=== PATIENT | female | born 1990 | race Asian ===

== ENCOUNTER 2017-04-14 18:27 | Inpatient (IN) | payer OTHER ==
[2017-04-14] VITALS (10 sets, daily range): BP systolic 87–137; BP diastolic 48–82; PULSE 62–111; TEMP 97.7
[~2017-04-14] VITALS: Ht 152.4 cm; Wt 55.9 kg
[2017-04-14] MEDS ORDERED: PRENATAL PO (20:08)
[2017-04-14 22:43] LABS: BASO # 0.1 (0.0-0.2); BASO % 0.3 % (0.0-2.0); EOS % 0.1 % (0-4.0); GRAN # 19.2 (1.4-6.5); GRAN % 84.5 % (42.2-75.2); HEMATOCRIT 41.9 % (37.0-47.0); HEMOGLOBIN 14.2 g/dl (12.5-16.0); LYMPH # 2.1 (1.2-3.4); LYMPH % 9.3 % (20.0-51.0); MEAN CELL VOLUME 89 fl (80.0-100.0); MEAN CORPUSCULAR HEMOGLOBIN 30 pg (27.0-31.0); MEAN CORPUSCULAR HGB CONC 34 g/dl (33.0-37.0); MEAN PLATELET VOLUME 11.3 fl (7.4-10.4); MONO # 1.2 (0.1-0.6); MONO % 5.2 % (1.7-9.3); PLATELET COUNT 341 K/mm3 (130-400); RED BLOOD COUNT 4.72 M/mm3 (4.10-5.30); REDCELL DISTRIBUTION WIDTH-CV 14.2 % (11.5-14.5)
[2017-04-14 22:47] LABS: WHITE BLOOD COUNT 22.7 K/mm3 (4.8-10.8)
[2017-04-15] VITALS (19 sets, daily range): BP systolic 96–132; BP diastolic 52–88; PULSE 68–126; TEMP 98.1–98.9
[2017-04-16] MEDS ORDERED: IBU600 MG PO (05:29)
[2017-04-16] MEDS ORDERED: PERCOCET 325 MG1 TA2 PO (05:29)
[2017-04-16 07:40] VITALS: BP 96/63; PULSE 71; TEMP 98.7
[2017-04-16 16:09] VITALS: BP 102/64; PULSE 70; TEMP 98.1
[2017-04-16 19:45] VITALS: BP 105/62; PULSE 74; TEMP 97.7
[2017-04-17 09:45] VITALS: BP 95/56; PULSE 77; TEMP 97.9
== END 2017-04-17 14:35 | disposition home or self-care (01) | DRG 775 ==
LOC: LDRO 18:27 → LDR 21:08 → OB 04-15 05:00 → LDRO 05-09 05:55
PROVIDERS: Obstetrics & Gynecology
PROC: 10E0XZZ Delivery of Products of Conception, External Approach (ICD-10-PCS; principal; 2017-04-15)
PROC: 0W8NXZZ Division of Female Perineum, External Approach (ICD-10-PCS; 2017-04-15)
DX: O60.14X0 Preterm labor third trimester with preterm delivery third trimester, not applicable or unspecified (principal); O69.2XX0 Labor and delivery complicated by other cord entanglement, with compression, not applicable or unspecified; Z3A.36 36 weeks gestation of pregnancy; Z37.0 Single live birth
CPT/HCPCS: J2540; J2590; J7120

== ENCOUNTER → 2017-04-19 | Outpatient (CLI) | payer OTHER ==
[~2017-04-19] MED LIST: IBU600 MG PO; PERCOCET 325 MG1 TA2 PO; PRENATAL PO
== END ==
LOC: OLC 15:04
DX: Z01.89 Encounter for other specified special examinations (principal)

== ENCOUNTER → 2017-04-20 | Outpatient (CLI) | payer OTHER | LOC: OLC 14:48 | DX: Z39.1 Encounter for care and examination of lactating mother (principal); Z71.89 Other specified counseling ==

== ENCOUNTER → 2017-04-30 | Outpatient (CLI) | payer OTHER | LOC: LAC 14:32 | DX: Z39.1 Encounter for care and examination of lactating mother (principal); N64.4 Mastodynia; Z71.89 Other specified counseling ==

== ENCOUNTER → 2018-09-22 | Outpatient (CLI) | payer OTHER | LOC: COL.RAD 17:44 | DX: M54.5 Low back pain (principal); M54.6 Pain in thoracic spine ==

== ENCOUNTER → 2018-10-17 | Outpatient (CLI) | payer OTHER | LOC: COL.RAD 17:41 | DX: M54.5 Low back pain (principal); M54.6 Pain in thoracic spine ==

== ENCOUNTER 2019-02-21 08:31 | Outpatient (RCR) | payer OTHER | END 2019-05-22 | disposition home or self-care (01) | LOC: WSOH | DX: M54.41 Lumbago with sciatica, right side (principal); M46.1 Sacroiliitis, not elsewhere classified; E06.3 Autoimmune thyroiditis; Z79.899 Other long term (current) drug therapy; X58.XXXA Exposure to other specified factors, initial encounter; Y92.59 Other trade areas as the place of occurrence of the external cause; Y99.0 Civilian activity done for income or pay ==

== ENCOUNTER → 2020-04-03 | Outpatient (CLI) | payer BC | LOC: DIA.ED 14:55 | DX: O24.419 Gestational diabetes mellitus in pregnancy, unspecified control (principal); E03.9 Hypothyroidism, unspecified | CPT/HCPCS: G0108 ==

== ENCOUNTER → 2020-04-17 | Outpatient (CLI) | payer BC | LOC: DIA.ED 08:55 | DX: O24.419 Gestational diabetes mellitus in pregnancy, unspecified control (principal); E03.9 Hypothyroidism, unspecified; Z79.4 Long term (current) use of insulin | CPT/HCPCS: G0108 ==

== ENCOUNTER → 2020-04-22 | Outpatient (CLI) | payer BC | LOC: DIA.ED 08:01 | DX: O24.419 Gestational diabetes mellitus in pregnancy, unspecified control (principal); Z79.4 Long term (current) use of insulin; E03.9 Hypothyroidism, unspecified | CPT/HCPCS: G0108 ==

== ENCOUNTER → 2020-05-02 | Outpatient (CLI) | payer BC | LOC: DIA.ED 08:20 | DX: O24.419 Gestational diabetes mellitus in pregnancy, unspecified control (principal); E03.9 Hypothyroidism, unspecified; Z79.4 Long term (current) use of insulin | CPT/HCPCS: G0108 ==

== ENCOUNTER → 2020-05-09 | Outpatient (CLI) | payer BC | LOC: DIA.ED 05-08 16:13 | DX: O24.419 Gestational diabetes mellitus in pregnancy, unspecified control (principal); Z79.4 Long term (current) use of insulin; E03.9 Hypothyroidism, unspecified | CPT/HCPCS: G0108 ==

== ENCOUNTER 2020-05-25 05:41 | Outpatient (CLI) | payer BC ==
[~2020-05-25] VITALS: Ht 149.9 cm; Wt 63.2 kg
--- NOTE | 2020-05-25 05:55 | NUR ---
Ambulatory to unit for labor assessment, accompanied by spouse. Plan of care reviewed. Pt reports contractions off and on all night, was able to sleep, stating "i woke up to go to the bathroom and was having them. At 0400 the pain woke me up"
[2020-05-25 06:01] VITALS: BP 108/71; PULSE 99
--- NOTE | 2020-05-25 06:20 | NUR ---
REPORT RECIEVED FROM JUAN MIGUEL LEE, PATIENT HERE AT 0555 COMPLAINS OF CONTRACTIONS. PATIENT HERE WITH . RESTING IN BED
[2020-05-25 06:30] VITALS: BP 108/71; PULSE 99
[2020-05-25 06:56] VITALS: BP 109/68; PULSE 81; TEMP 98
[2020-05-25 07:00] VITALS: BP 108/77; PULSE 96; TEMP 98
[2020-05-25] MEDS ORDERED: PRENATAL (07:19)
[2020-05-25] MEDS ORDERED: NOVOLOG 100U100 U/M1 SQ (07:19)
[2020-05-25] MEDS ORDERED: LEVOXYL0.075 MG PO (07:20)
[2020-05-25 07:30] VITALS: BP 109/68; PULSE 81
[2020-05-25 07:47] VITALS: BP 108/72; PULSE 72
[2020-05-25] MEDS ORDERED: NATURAL IRON65 MG PO (12:58)
== END 2020-05-25 08:00 | disposition home or self-care (01) ==
LOC: LDRO 05:41 → LDR 05:50 → LDRO 08:00
DX: O62.9 Abnormality of forces of labor, unspecified (principal); Z3A.37 37 weeks gestation of pregnancy
CPT/HCPCS: OP

== ENCOUNTER 2020-05-25 12:13 | Inpatient (IN) | payer BC ==
[~2020-05-25] VITALS: Ht 149.9 cm; Wt 63.2 kg
[2020-05-25] VITALS (22 sets, daily range): BP systolic 102–145; BP diastolic 56–79; PULSE 69–118; TEMP 97.8–99
[~2020-05-25 12:13] MED LIST changes: +LEVOXYL0.075 MG PO; +NOVOLOG 100U100 U/M1 SQ; +PRENATAL
--- NOTE | 2020-05-25 12:25 | NUR ---
Patient onto unit via wheelchair for labor check with at side. Patient reports contractions have increased in pain and frequency since being discharged from hospital this morning. Patient also reports bleeding noted after bowel movement this morning. Patient reports good movement and denies leaking of fluid. EFMs on. VS taken. SVE /-2 per Garrett BULLARD. Assessment completed. notified, admission orders received. IV started in right hand, labs drawn, LR bolusing for epidural placement. Consents signed.
[2020-05-25] MEDS ORDERED: NATURAL IRON65 MG PO (12:58)
--- NOTE | 2020-05-25 13:00 | NUR ---
1300: Patient sitting up for epidural placement. Emily Castro [employer] HELPER at bedside. 1306: Lidocaine. 1307: Single Shot given by Nilam GARCIA, no adverse reactions noted. 1308: Epidural catheter placed. 1309: Test Dose given by Nilam GARCIA, no adverse reactions noted. 1305: Patient repositioned to left tilt.
[2020-05-25 13:28] LABS: BASO % 0.3 % (0.0-2.0); EOS % 0.1 % (0-4.0); GRAN # 12.2 (1.4-6.5); GRAN % 79.6 % (42.2-75.2); HEMATOCRIT 41.5 % (37.0-47.0); HEMOGLOBIN 13.6 g/dl (12.5-16.0); LYMPH # 2.1 (1.2-3.4); LYMPH % 13.7 % (20.0-51.0); MEAN CELL VOLUME 83 fl (80.0-100.0); MEAN CORPUSCULAR HEMOGLOBIN 27 pg (27.0-31.0); MEAN CORPUSCULAR HGB CONC 33 g/dl (33.0-37.0); MEAN PLATELET VOLUME 12.5 fl (7.4-10.4); MONO # 0.9 (0.1-0.6); MONO % 5.9 % (1.7-9.3); PLATELET COUNT 343 K/mm3 (130-400); RED BLOOD COUNT 4.98 M/mm3 (4.10-5.30); REDCELL DISTRIBUTION WIDTH-CV 21.1 % (11.5-14.5)
--- NOTE | 2020-05-25 13:50 | NUR ---
to bedside. Plan of care discussed, questions answered. AROM at 1350, moderate amount of clear fluid noted. SVE 6-7/80/-2 per provider. Johnson catheter placed by this RN. Patient repositioned to right tilt with peanut ball in place. Call light within reach.
--- NOTE | 2020-05-25 15:00 | NUR ---
Patient resting comfortably upon RN entry to room. SVE 8/100/0. Patient repositioned to left tilt with peanut ball in place.
--- NOTE | 2020-05-25 15:15 | NUR ---
Variable deceleration into the 60s noted. SVE AL/+1. notified, requested on unit for delivery. Patient repositioned to right tilt.
--- NOTE | 2020-05-25 15:45 | NUR ---
1525: on unit, at bedside. RYNE Steiner. Elizabeth pugh Patient and room prepped for delivery. 1531: Initial push. 1535: Spontaneous vaginal delivery of viable male assisted by over 2nd degree perineal laceration. to abdomen, care assumed by Jayce BULLARD. 1537: Spontaneous delivery of placenta assisted by . Fundus firm, scant lochia noted with massage. Pitocin infusing at 333ml/hr. 2nd degree perineal laceration repaired using 3-[address]-1. 1545: Recovery period started. Fundus firm, scant lochia.
[2020-05-26 03:30] VITALS: BP 103/52; PULSE 70; TEMP 97.5
[2020-05-26 07:05] VITALS: BP 106/67; PULSE 71; TEMP 97.9
[2020-05-26 11:15] VITALS: BP 102/66; PULSE 81; TEMP 98
[2020-05-26 15:30] VITALS: BP 100/45; PULSE 79; TEMP 99
--- NOTE | 2020-05-26 18:30 | NUR ---
Report recieved. Requested tylenol at this time. Updated whiteboard and reviewed POC. Denied questions or concerns.
[2020-05-26 20:00] VITALS: BP 104/69; PULSE 82; TEMP 97.7
[2020-05-27 08:30] VITALS: BP 109/68; PULSE 79; TEMP 98
--- NOTE | 2020-05-27 10:04 | NUR ---
Initial visit; Patient thanked Obstetric Anaesthetist for offering congratulations and blessings for the of her son. Obstetric Anaesthetist thanked patient for choosing [facility].
[2020-05-27] MEDS ORDERED: MOTRIN 800800 MG/TAB PO (12:00)
[2020-05-27] MEDS ORDERED: PERCOCET 325 MG1 TA2 PO (12:00)
--- NOTE | 2020-05-27 15:12 | NUR ---
1415 DISCHARGE INSTRUCTIONS REVIEWED WITH PATIENT. ALL QUESTIONS ANSWERED. PATIENT VERBALIZED UNDERSTANDING. PATIENT WILL NOTIFY THIS RN WHEN READY TO LEAVE.
== END 2020-05-27 15:45 | disposition home or self-care (01) | DRG 807 ==
LOC: LDRO 12:13 → LDR 12:44 → OB 12:44
PROVIDERS: Obstetrics & Gynecology; ADMIT Obstetrics & Gynecology
PROC: 10E0XZZ Delivery of Products of Conception, External Approach (ICD-10-PCS; principal; 2020-05-25)
PROC: 0KQM0ZZ Repair Perineum Muscle, Open Approach (ICD-10-PCS; 2020-05-25)
PROC: 10907ZC Drainage of Amniotic Fluid, Therapeutic from Products of Conception, Via Natural or Artificial Opening (ICD-10-PCS; 2020-05-25)
DX: O99.284 Endocrine, nutritional and metabolic diseases complicating childbirth (principal); Z37.0 Single live birth; O70.1 Second degree perineal laceration during delivery; O24.429 Gestational diabetes mellitus in childbirth, unspecified control; Z3A.37 37 weeks gestation of pregnancy; E03.9 Hypothyroidism, unspecified; D64.9 Anemia, unspecified; O99.02 Anemia complicating childbirth
CPT/HCPCS: J2590; J7120

== ENCOUNTER → 2020-09-25 | Outpatient (CLI) | payer BC, MEDICAID ==
[~2020-09-25] MED LIST changes: +CARAFATE 1GM1 G PO; +LEVOXYL0.05 MG PO; +MOTRIN 800800 MG/TAB PO; +NATURAL IRON65 MG PO; +PRIL40 PO
== END ==
LOC: COL.RAD 07:51
DX: R10.13 Epigastric pain (principal); R10.11 Right upper quadrant pain

== ENCOUNTER 2020-09-26 06:30 | Day surgery (SDC) | payer BC, MEDICAID ==
[~2020-09-26] VITALS: Ht 149.9 cm; Wt 52.1 kg
[2020-09-26] VITALS (10 sets, daily range): BP systolic 89–114; BP diastolic 57–76; PULSE 66–86; TEMP 97.9–99.2
[~2020-09-26 06:30] MED LIST changes: -CARAFATE 1GM1 G PO; -LEVOXYL0.05 MG PO; -PRIL40 PO
[2020-09-26] MEDS ORDERED: LEVOXYL0.05 MG PO (06:39)
[2020-09-26] MEDS ORDERED: PRIL40 PO (06:41)
[2020-09-26] MEDS ORDERED: CARAFATE 1GM1 G PO (06:42)
--- NOTE | 2020-09-26 08:15 | NUR ---
Pt returns from [facility] via cart. Pt drowsy. Pt to remain on cart in [place] [facility]. Pt responds to questions appropriately. Friend in room. Report received from JUAN MIGUEL Reich. Call light within reach. Monitors on and alarms set. Pt denies pain or nausea.
--- NOTE | 2020-09-26 08:30 | NUR ---
Pt remains drowsy, but answering all questions appropriately.
--- NOTE | 2020-09-26 08:45 | NUR ---
Pt alert and oriented. Complaints of rash and itching on bilat arms, bilat feet, chest, parts of her face, and back of her neck. Call to Dr. Benitez regarding this and an order given for Benadryl 12.5 mg IV now. No other complaints voiced.
--- NOTE | 2020-09-26 09:10 | NUR ---
Pt states itching is less. Bumps on arms also appear less prominent. Pt desires additional warm blankets. Friend remains in room.
--- NOTE | 2020-09-26 09:30 | NUR ---
Pt states itching and bumps continuing to improve. Pt given jamison crackers and water.
--- NOTE | 2020-09-26 10:45 | NUR ---
Pt states that all of the reaction is basically better. Some raised areas remain on the back of her neck. These are continuing to resolve. Discharge options given to pt to continue to wait for reaction to improve or to discharge home now. Pt desires to have something to eat first and wait for further symptom resolution. Dr. Benitez called, and he is fine with pt being discharged with the instructions that the pt could get Benadryl or Pepcid over the counter to help with symptoms. The pt voices understanding with this.
--- NOTE | 2020-09-26 11:20 | NUR ---
Pt desires more crackers to help some "burning" in stomach to settle down. Pt also mentions that this "burning" is why she takes the medicine she takes, and she'll take this medicine when she gets home.
--- NOTE | 2020-09-26 12:15 | NUR ---
Discharge instructions given to pt. All questions answered to her satisfaction. Handed to her are a thank you card, discharge instructions, procedural information and photos, and a discharge med sheet.
--- NOTE | 2020-09-26 12:33 | NUR ---
Pt transferred out of hospital via wheelchair and JUAN MIGUEL Ivory assist, to private vehicle driven by .
== END 2020-09-26 12:33 | disposition home or self-care (01) ==
LOC: SDCO 06:30
DX: R10.13 Epigastric pain (principal); K21.9 Gastro-esophageal reflux disease without esophagitis; E03.9 Hypothyroidism, unspecified; Z79.890 Hormone replacement therapy; Z88.2 Allergy status to sulfonamides; Z79.899 Other long term (current) drug therapy; Z20.822 Contact with and (suspected) exposure to COVID-19; Z82.49 Family history of ischemic heart disease and other diseases of the circulatory system
CPT/HCPCS: J1200; J2704; J3010; J7120

== ENCOUNTER → 2021-12-01 | Outpatient (CLI) | payer BC, MEDICAID ==
[~2021-12-01] MED LIST changes: +CARAFATE 1GM1 G PO; +LEVOXYL0.05 MG PO; +PRIL40 PO
== END ==
LOC: COL.RAD 11:11
DX: R05.9 Cough, unspecified (principal)

== ENCOUNTER 2023-08-13 14:50 | Outpatient (RCR) | payer BC, OTHER ==
[~2023-08-13 14:50] MED LIST changes: +AUGMENTIN 250 M1 TAB PO; -LEVOXYL0.075 MG PO; +LEVOXYL0.088 MG PO; +NSAID; +REGLAN 5MG T5 MG/TAB PO; +TYLENOL 325MG325 MG PO
[2023-08-13] MEDS ORDERED: Iron Sucrose 200 MG in NS 100 ML Over 15 minutes IV ONE (15:00)
[2023-08-13 15:25] VITALS: BP 114/79; PULSE 93; TEMP 98.9
[2023-08-13] MEDS ORDERED: VITAMIN D 50,1.25 MG PO (15:29)
== END 2023-08-13 15:43 | disposition home or self-care (01) ==
LOC: EUO 14:50
DX: D50.8 Other iron deficiency anemias (principal)
CPT/HCPCS: J1756